=== PATIENT | male | born 1960 | race Caucasian/White ===

== ENCOUNTER 2022-03-13 08:56 | Emergency (ER) | payer OTHER, SELFPAY ==
[2022-03-13 09:05] VITALS: BP 148/82; PULSE 73; RESP 14; TEMP 36.4; O2SAT 97; BMI 31.1
--- NOTE | 2022-03-13 09:12 | ED_ITS ---
HPI - Neck Pain/Injury General: Chief Complaint: Neck Pain/Injury Stated Complaint: sent by tn for ct scan Time Seen by Provider: 03/13/22 09:11 Source: patient Mode of arrival: ambulatory Limitations: no limitations History of Present Illness: 61-year-old male presents to the ER today for neck pain x1 week. Patient reports he was unloading a semi and a bunk fell on his head. Patient reports that he did lose consciousness for 3 minutes. He did not seek medical attention at that time. Patient reports he was dizzy and had a headache for about 8 hours. He reports the headache resolved after 8 hours however the dizziness has continued. Patient reports he has had continued neck pain and went to the chiropractor this morning who recommended an x-ray. [facility] of his neck given the type of injury. Patient was placed on a soft c-collar upon arrival. He reports that is making the pain worse. Patient denies any prior injury. Denies any other neurological deficits at this time. Denies any blurry vision or changes in vision. Review of Systems General: Reports: 10 or more systems reviewed and unremarkable except in HPI and below Physical Exam Const: COMMON NORMALS: no acute distress, average body habitus, patient oriented x3, no limitations, healthy appearing, alert and well nourished HENMT: COMMON NORMALS: normocephalic, atraumatic, external ears normal, Normal external nose present and moist oral mucous membranes HEAD & SCALP: normocephalic and atraumatic NOSE: Normal external nose present EXTERNAL EAR: Yes external ears normal Neck/C-Spine: OTHER: Patient has mild tenderness along the left cervical muscles however no pain along the cervical spine. Patient has normal range of motion. Resp: COMMON NORMALS: normal respiratory effort, No retractions, No use of accessory muscles and clear to auscultation bilaterally AUSCULTATION: clear to auscultation bilaterally Cardio: COMMON NORMALS: regular rate and regular rhythm RATE: regular rate RHYTHM: regular rhythm Extremity: COMMON NORMALS: normal to inspection and full ROM Neuro: COMMON NORMALS: patient oriented x3 SENSORIUM/ORIENTATION: Yes alert Psych: COMMON NORMALS: mental status grossly normal, Normal thought process present and cooperative THOUGHT PROCESS: Normal thought process present Skin: COMMON NORMALS: no rashes or lesions noted GENERAL SKIN EXAM: no rashes or lesions noted Course ED course: 61-year-old male presents to the ER today wanting a CT scan. Patient reports he went to the chiropractor this morning who [facility] to [facility] and the [facility] sent to the [facility]. Patient reports 1 week ago he had a bunk follow-up of SMI on his head. He did report 3 minutes of loss of consciousness. He reports dizziness x1 week. Patient reports he had a headache for about 8 hours however that has improved. Patient reports some tenderness in his neck. He denies any other neurological deficits. We will get a CT of the head and neck at this time. Vital Signs: Vital signs: Vital Signs Temperature 97.5 F L 03/13/22 09:05 Pulse Rate 73 03/13/22 09:05 Respiratory Rate 14 03/13/22 09:05 Blood Pressure 148/82 03/13/22 09:05 Pulse Oximetry 97 03/13/22 09:05 MDM - Neck Pain/Injury Medical Decision Making 61-year-old male presents to the ER today wanting a CT scan. Patient reports he went to the chiropractor this morning who [facility] to [facility] and the [facility] to the [facility]. Patient reports 1 week ago he had a bunk follow-up of SMI on his head. He did report 3 minutes of loss of consciousness. He reports dizziness x1 week. Patient reports he had a headache for about 8 hours however that has improved. Patient reports some tenderness in his neck. He denies any other neurological deficits. We will get a CT of the head and neck at this time. CT of the head and neck are both normal. Discussed findings with patient. Patient likely has a cervical strain and concussion. We discussed brain rest for the concussion. We will do Robaxin for neck pain. Patient plans to follow-up with chiropractic. He will follow-up PCP in 7 to 10 days if no improvement. Return to the ER with new or worsening symptoms. Patient verbalized understanding and was in agreement with the treatment plan. Lab Data Radiology Impressions Cervical Spine CT 03/13/22 09:21 IMPRESSION: No evidence of acute fracture or dislocation. Head CT 03/13/22 09:40 IMPRESSION: 1. No evidence of intracranial hemorrhage or mass effect. 2. Mild small vessel changes. Mild parenchymal volume loss. 3. No acute intracranial findings. Critical Care Time Critical Care Time: Critical Care Time: No Discharge Plan Discharge Patient Disposition: Home Clinical Impression: Strain of neck muscle Concussion Qualifiers: Encounter type: initial encounter Loss of consciousness presence/duration: with LOC of 30 min or less Qualified Code(s): S06.0X1A - Concussion with loss of consciousness of 30 minutes or less, initial encounter Condition: Stable Prescriptions: New methocarbamol 750 mg tablet 750 mg PO Q8H Qty: 21 0RF Discharge Orders: Discharge ED (Routine); Ordered 03/13/22 Ordered By: Pati Lal Discharge Diet: As Directed Discharge Activity: Increase activity as tolerated Patient Instructions: Opioid Safety Activity Restrictions/Additional Instructions: Take Robaxin as prescribed. Take ibuprofen or Aleve x5 to 7 days. Warm heat alternating with ice for symptomatic relief. I would recommend brain rest given probable concussion. This involves avoiding screen time and reading fine print. Avoid exercise until symptoms improve. Okay to follow-up with chiropractor or massage. Follow-up with PCP in 7 to 10 days if no improvement. Return to the ER with new or worsening symptoms. Coding Level of Care Code ED Information Developer for Hilario Fwaddison Exam Detailed
--- NOTE | 2022-03-13 09:21 | CT_ITS ---
WS: [id number] CT CERVICAL TRAUMA TECHNIQUE: Noncontrast CT of the cervical spine with coronal and sagittal reformatted images. CLINICAL INFORMATION: bravo fell on head 1 week ago, neck pain COMPARISON: None. DLP: 235.[address] scans at [facility] use at least one of these dose optimization techniques: automated e xposure control; mA and/or kV adjustment per patient size (includes targeted exams where dose is matc hed to clinical indication); or iterative reconstruction. FINDINGS: Straightening of the normal cervical lordosis. Normal craniocervical junction. Slight anterolisthesis C3 on C4 and C4 on C5 and C5 on C6. Normal C1-C2 articulation. Dens is normal in appearance. Normal occipital condyles. No high-grade spinal canal narrowing. Normal C1 ring. No evidence of acute fractu re or dislocation. Normal prevertebral soft tissues. Mastoids air cells are well aerated. CT/CT cervical spin wo con* [id number] IMPRESSION: No evidence of acute fracture or dislocation.
--- NOTE | 2022-03-13 09:40 | CT_ITS ---
WS: [id number] CT HEAD TECHNIQUE: Noncontrast CT of the head obtained from the skullbase to the vertex. CLINICAL INFORMATION: bunk fell on head COMPARISON: None. DLP: 1152.[address] scans at [facility] use at least one of these dose optimization techniques: automated e xposure control; mA and/or kV adjustment per patient size (includes targeted exams where dose is matc hed to clinical indication); or iterative reconstruction. FINDINGS: No evidence of intracranial hemorrhage or mass effect. Ventricular system and basal cisterns are gomez nt. Mild small vessel changes with mild parenchymal volume loss. No extra-axial fluid collections. No evidence of mass or mass effect. Benign-appearing calcification LEFT basal ganglia. Paranasal sinuses and mastoid air cells are well aerated. .Normal visualized soft tissues. CT/CT head wo con* [id number] IMPRESSION: 1. No evidence of intracranial hemorrhage or mass effect. 2. Mild small vessel changes. Mild parenchymal volume loss. 3. No acute intracranial findings.
[2022-03-13 10:59] VITALS: BP 149/83; PULSE 56; RESP 16; TEMP 36.4; O2SAT 97
== END 2022-03-13 11:01 | disposition home or self-care (01) ==
PROVIDERS: Emergency Provider Physician Assistant
DX: S16.1XXA Strain of muscle, fascia and tendon at neck level, initial encounter (principal); S06.0X1A Concussion with loss of consciousness of 30 minutes or less, initial encounter; W20.8XXA Other cause of strike by thrown, projected or falling object, initial encounter
CPT/HCPCS: 70450; 72125; 99284; 99291; 99292